=== PATIENT | female | born 1960 | race Caucasian/White ===

== ENCOUNTER 2020-04-27 08:13 | Inpatient (IN) ==
[2020-04-27] MEDS ORDERED: SODIUM CHLORIDE 0.9% 1,000 ML IV STA (08:41)
[2020-04-27 09:05] LABS: Basophils % 0.4 % (0.0-0.8); Eosinophils # 0.2 10*3/uL (0.0-0.87); Eosinophils % 2.8 % (0.00-10.9); Hematocrit 40.3 VOL% (35.7-47.0); Hemoglobin 12.9 GM/DL (12.0-16.0); Immature Granulocytes % 0.3 %; Immature Granulocytes Absolute 0.02 #; Lymphocytes # 2.3 10*3/uL (1.4-4.0); Lymphocytes % 32.6 % (21.3-54.2); Mean Corpuscular Volume 89.6 FL (87-102); Mean Platelet Volume 11.8 FL (9.6-12.0); Monocytes % 8.4 % (1.7-12.7); Neutrophils % 55.5 % (38.7-73.9); Platelet Count 231 T/CUMM (130-400); Red Cell Distribution Width 13.6 % (9.3-17.3); White Blood Count 7.1 T/CUMM (4-12)
[2020-04-27 09:23] LABS: Alanine Aminotransferase 22 U/L (13-56); Albumin 3.4 G/DL (3.4-5.0); Alkaline Phosphatase 83 U/L (45-117); Aspartate Amino Transferase 22 U/L (0-37); Blood Urea Nitrogen 16 MG/DL (7-18); Calcium 8.9 MG/DL (8.5-10.1); Estimated Glom Filtration Rate 84 ML/MIN; Glucose 223 MG/DL (74-106); Osmolality,Calculated 284.5 MOS/KG (273-304); Total Protein 6.8 G/DL (6.4-8.3)
[2020-04-27 09:36] LABS: INR 0.9; PT Patient Result 10.2 SECS (9.8-11.9); Partial Thromboplastin Time 20.8 SECS (23.9-33.8)
[2020-04-27] MEDS ORDERED: LABETALOL 20 MG/4 ML SYRINGE IV PRN (10:04)
[2020-04-27] MEDS ORDERED: clonazePAM 0.5 MG TABLET PO PRN (10:08)
[2020-04-27] MEDS ORDERED: GLUCAGON 1 MG VIAL IM PRN (10:09)
[2020-04-27] MEDS ORDERED: DEXTROSE 50% 25 GM/50 ML VIAL IV PRN (10:09)
[2020-04-27] MEDS ORDERED: NICOTINE 21 MG/24 HR PATCH TRANSDERM PRN (10:14)
[2020-04-27 10:16] LABS: Apearance,Urine CLEAR (Clear); Bacteria,Urine Occasional /HPF (Few); Bilirubin,Urine Negative (Negative); Blood, Urine Negative (Negative); Glucose,Urine (UA) 50 mg/dL (Negative); Hyaline Casts,Urine 6 /LPF (0-3); Ketones,Urine Negative (Negative); Mucus,Urine Few /LPF (Occasional); Nitrite,Urine Negative (Negative); Protein,Urine Negative; RBC,Urine <1 /HPF (0-4); Squamous Epithelial Cell,Urine Occasional /HPF (0-10); Urine Color Yellow (Yellow); Urine Urobilinogen < 2.0 EU/DL (0.2-1.0); WBC,Urine <1 /HPF (0-6)
[2020-04-27 10:35] LABS: Barbiturates Screen,Urine Negative (Negative); Benzodiazepines Screen,Urine Negative (Negative); Cannabinoid Screen,Urine Negative (Negative); Opiate Screen,Urine Negative (Negative); Phencyclidine Screen,Urine Negative (Negative)
[2020-04-27] MEDS: CLOPIDOGREL 75 MG TABLET PO SCH (11:40)
[2020-04-27] MEDS ORDERED: clonazePAM 0.5 MG TABLET PO ONE (11:57)
[2020-04-27] MEDS ORDERED: LORazepam 1 MG TABLET PO ONE (12:09)
[2020-04-27] MEDS: INSULIN REGULAR 100 UNIT/ML SUBCUT SCH ×3 (12:20→22:39)
[2020-04-27 12:35] LABS: Risk Ratio 7.62; VLDL CHOLESTEROL 101.4 MG/DL
[2020-04-27] MEDS ORDERED: hydrALAZINE 20 MG/1 ML VIAL IV PRN (15:46)
[2020-04-27] MEDS: ROSUVASTATIN 20 MG TABLET PO SCH (22:19)
[2020-04-27] MEDS: OMEGA 3 ACID ETHYL ESTERS 1 GM CAPSULE PO SCH (22:20)
[2020-04-28] MEDS: INSULIN REGULAR 100 UNIT/ML SUBCUT SCH ×4 (09:20→21:04)
[2020-04-28] MEDS: NIACIN 500 MG TABLET PO SCH ×2 (09:20→21:01)
[2020-04-28] MEDS: CLOPIDOGREL 75 MG TABLET PO SCH (09:20)
[2020-04-28] MEDS: OMEGA 3 ACID ETHYL ESTERS 1 GM CAPSULE PO SCH ×3 (09:20→20:58)
[2020-04-28] MEDS: diphenhydrAMINE CAP 25 MG CAPSULE PO PRN ×2 (11:29→20:58)
[2020-04-28] MEDS: INSULIN ASPART PROTAMINE/ASPART 70/30 100 UNIT/ML SUBCUT SCH (16:57)
[2020-04-28] MEDS: ROSUVASTATIN 20 MG TABLET PO SCH (20:58)
[2020-04-29 05:48] LABS: Basophils % 0.3 % (0.0-0.8); Eosinophils # 0.2 10*3/uL (0.0-0.87); Eosinophils % 2.9 % (0.00-10.9); Hematocrit 37.7 VOL% (35.7-47.0); Immature Granulocytes % 0.3 %; Immature Granulocytes Absolute 0.02 #; Lymphocytes % 44.9 % (21.3-54.2); Mean Corpuscular HGB Conc 31.8 GM/DL (32-36); Mean Corpuscular Volume 90.6 FL (87-102); Mean Platelet Volume 12.3 FL (9.6-12.0); Monocytes % 9.3 % (1.7-12.7); Neutrophils % 42.3 % (38.7-73.9); Platelet Count 194 T/CUMM (130-400); Red Blood Count 4.16 MC/CUMM (3.8-5.5); Red Cell Distribution Width 13.3 % (9.3-17.3); White Blood Count 6.6 T/CUMM (4-12)
[2020-04-29 05:59] LABS: Calcium 9.1 MG/DL (8.5-10.1); Osmolality,Calculated 284.4 MOS/KG (273-304)
[2020-04-29] MEDS: OMEGA 3 ACID ETHYL ESTERS 1 GM CAPSULE PO SCH ×2 (08:07→21:23)
[2020-04-29] MEDS: INSULIN REGULAR 100 UNIT/ML SUBCUT SCH ×4 (08:07→21:31)
[2020-04-29] MEDS: NIACIN 500 MG TABLET PO SCH ×2 (08:48→21:23)
[2020-04-29] MEDS: INSULIN ASPART PROTAMINE/ASPART 70/30 100 UNIT/ML SUBCUT SCH (08:48)
[2020-04-29] MEDS: lisinopriL 10 MG TABLET PO SCH (08:48)
[2020-04-29] MEDS: CLOPIDOGREL 75 MG TABLET PO SCH (08:48)
[2020-04-29] MEDS: diphenhydrAMINE CAP 25 MG CAPSULE PO PRN ×2 (08:48→21:23)
[2020-04-29] MEDS ORDERED: INSULIN ASPART PROTAMINE/ASPART 70/30 100 UNIT/ML SUBCUT SCH (16:30)
[2020-04-29] MEDS: ENOXAPARIN 80 MG/0.8 ML SYRINGE SUBCUT SCH (21:23)
[2020-04-29] MEDS: ROSUVASTATIN 20 MG TABLET PO SCH (21:23)
[2020-04-30 06:21] LABS: Calcium 8.8 MG/DL (8.5-10.1); Osmolality,Calculated 280.7 MOS/KG (273-304)
[2020-04-30] MEDS ORDERED: LEVOTHYROXINE 50 MCG TABLET PO SCH (06:30)
[2020-04-30] MEDS ORDERED: INSULIN ASPART PROTAMINE/ASPART 70/30 100 UNIT/ML SUBCUT SCH (07:30)
[2020-04-30] MEDS: lisinopriL 10 MG TABLET PO SCH (09:10)
[2020-04-30] MEDS: NIACIN 500 MG TABLET PO SCH (09:10)
[2020-04-30] MEDS: diphenhydrAMINE CAP 25 MG CAPSULE PO PRN (09:10)
[2020-04-30] MEDS: ENOXAPARIN 80 MG/0.8 ML SYRINGE SUBCUT SCH (09:10)
[2020-04-30] MEDS: CLOPIDOGREL 75 MG TABLET PO SCH (09:10)
[2020-04-30] MEDS: OMEGA 3 ACID ETHYL ESTERS 1 GM CAPSULE PO SCH (09:15)
[2020-04-30] MEDS: INSULIN REGULAR 100 UNIT/ML SUBCUT SCH ×2 (09:15→13:25)
[2020-04-30 12:00] VITALS: BP 149/69
[2020-04-30] MEDS: POTASSIUM CHLORIDE 20 MEQ TABLET PO PRN ×4 (14:14→15:43)
[2020-05-01] MEDS ORDERED: lisinopriL 20 MG TABLET PO SCH (09:00)
== END 2020-04-30 15:50 | disposition home or self-care (01) | DRG 65 ==
LOC: EDBD → EDUNIT# → N.ED 08:13 → N.EDINP 10:04 → N.TELEN 12:26
PROVIDERS: ADMIT Family Medicine; ATTEND Family Medicine